=== PATIENT | female | born 1985 | race Caucasian/White ===

== ENCOUNTER 2022-11-11 22:54 | Emergency (ER) | payer MEDICAID ==
[~2022-11-11] VITALS: Ht 152.4 cm; Wt 65.0 kg
[2022-11-11 23:24] VITALS: BP 122/82
[2022-11-11 23:56] LABS: CLARITY,URINE CLOUDY (Clear); COLOR,URINE RED (Yellow); GLUCOSE, URINE 100 mg/dl (Neg); KETONES,URINE TRACE mg/dl (Neg); LEUKOCYTE ESTERASE ,URINE TRACE (Neg); OCCULT BLOOD,URINE LARGE (Neg); PROTEIN,URINE 100 mg/dl (Neg)
[2022-11-11 23:57] LABS: URINE HCG POSITIVE (NEG)
[2022-11-12 00:03] LABS: UA COLLECTION TYPE CLN CATCH MIDSTREAM
[2022-11-12 00:05] LABS: NITRITES, URINE NEGATIVE (Neg); RBC,URINE TNTC /HPF (0-2)
--- NOTE | 2022-11-12 00:06 | NUR ---
I agree with Silver Singh assessment.
[2022-11-12 00:07] LABS: BACTERIA,URINE FEW /HPF (Neg); SQUAMOUS EPITHELIAL CELL,UR FEW /LPF (FEW)
[2022-11-12 00:19] LABS: BASOPHILS % (AUTO) 0.3 % (0-1); EOSINOPHILS % (AUTO) 0.4 % (0-6); HEMATOCRIT 29.3 % (35.0-45.0); LYMPHOCYTES # (AUTO) 2.8 X10'3 (1.1-4.8); LYMPHOCYTES % (AUTO) 23.9 % (21-51); MEAN CORPUSCULAR HEMOGLOBIN 27.1 PG (27.0-31.0); MEAN CORPUSCULAR VOLUME 79.7 FL (78-98); MONOCYTES # (AUTO) 0.6 X10'3 (0-0.9); MONOCYTES % (AUTO) 5.1 % (2-12); NEUTROPHILS # (AUTO) 8.2 X10'3 (1.8-7.7); NEUTROPHILS % (AUTO) 70.3 % (42-75); PLATELET COUNT 243 X10'3 (140-440); RED BLOOD COUNT 3.68 X10'6 (4.20-5.60); RED CELL DISTRIBUTION WIDTH 15.6 % (11.5-14.5); WHITE BLOOD COUNT 11.6 X10'3 (4.5-11.0)
[2022-11-12 00:35] LABS: ALANINE AMINOTRANSFERASE 24 U/L (12-78); ALBUMIN 3.6 G/DL (3.4-5.0); ALBUMIN/GLOBULIN RATIO 1.2 (1.1-1.5); ALKALINE PHOSPHATASE 53 IU/L (46-116); ANION GAP 8 (8-16); ASPARTATE AMINO TRANSFERASE 24 U/L (10-37); BILIRUBIN,TOTAL 0.2 MG/DL (0.1-1.0); BLOOD UREA NITROGEN 10 MG/DL (7-18); BUN/CREATININE RATIO 17.2 (6.6-38.0); CALCIUM 8.8 MG/DL (8.5-10.1); CHLORIDE 103 MMOL/L (99-107); CREATININE 0.58 MG/DL (0.40-0.90); GLUCOSE 96 MG/DL (70-104); POTASSIUM 3.5 MMOL/L (3.5-5.1); SODIUM 136 MMOL/L (135-145); TOTAL CARBON DIOXIDE 25.3 MMOL/L (24-32); TOTAL PROTEIN 6.6 G/DL (6.4-8.2); eGFR > 90 ML/MIN
[2022-11-12 01:02] LABS: BETA HCG,QUANTITATIVE 7047 mIU/ml
== END 2022-11-12 01:24 | disposition left against medical advice (07) ==
LOC: ER 22:56
DX: O20.8 Other hemorrhage in early pregnancy (principal); Z3A.13 13 weeks gestation of pregnancy; Z98.890 Other specified postprocedural states; Z79.899 Other long term (current) drug therapy
CPT/HCPCS: 36415; 76817; 80053; 81001; 81003; 81025; 84702; 85025; 86885; 86900; 86901; 87077; 87088; 87186; 99284

== ENCOUNTER 2024-09-16 13:17 | Emergency (ER) | payer MEDICAID ==
[~2024-09-16] VITALS: Ht 152.4 cm; Wt 64.2 kg
[~2024-09-16 13:17] MED LIST: CLIN-97 PO
[2024-09-16 13:26] VITALS: BP 104/51; PULSE 68; RESP 16; TEMP 98.7; O2SAT 100
[2024-09-16] MEDS: LIDOcaine/epinephrine/tetracaine TOPICAL sol 3 ML syringe TOP ONE (14:56)
[2024-09-16] MEDS: LIDOcaine 1% W/epiNEPHrine 1:100,000 20ml vial SQ ONE (15:30)
[2024-09-16] MEDS ORDERED: SULF1TAB49 PO (15:46)
[2024-09-16] MEDS ORDERED: sulfamethoxazole/trimethoprim DS (800/160mg) tablet PO ONE (15:50)
== END 2024-09-16 16:54 | disposition left against medical advice (07) ==
LOC: ER 13:18
DX: N76.4 Abscess of vulva (principal); Z98.890 Other specified postprocedural states; Z79.899 Other long term (current) drug therapy
CPT/HCPCS: 56405; 99284; J3490; A6258; A6449

== ENCOUNTER 2024-09-20 18:10 | Emergency (ER) | payer MEDICAID ==
[~2024-09-20] VITALS: Ht 152.4 cm; Wt 52.3 kg
[~2024-09-20 18:10] MED LIST changes: +SULF1TAB49 PO
[2024-09-20 18:22] VITALS: BP 125/76; PULSE 100; RESP 18; TEMP 97.7; O2SAT 99
[2024-09-20] MEDS ORDERED: METR-159 PO (20:41)
== END 2024-09-20 20:45 | disposition home or self-care (01) ==
LOC: ER 18:11
DX: N76.4 Abscess of vulva (principal); Z79.2 Long term (current) use of antibiotics; Z98.890 Other specified postprocedural states
CPT/HCPCS: 87070; 87210; 99284

== ENCOUNTER 2025-04-14 07:47 | Emergency (ER) | payer MEDICAID ==
[~2025-04-14] VITALS: Ht 152.4 cm; Wt 54.5 kg
[~2025-04-14 07:47] MED LIST changes: +BUPR1FIL3 SL; +CLON-529 PO; +FLUO20CA39 PO; +LACT-373 PO; +MAGN296S68 PO; +ONDA-245 PO; -SULF1TAB49 PO
[2025-04-14 07:48] VITALS: BP 128/83; PULSE 73; RESP 16; TEMP 98.6; O2SAT 100
[2025-04-14] MEDS ORDERED: IBUP-1985 PO (08:06)
[2025-04-14] MEDS ORDERED: AMOX-101 PO (08:06)
--- NOTE | 2025-04-14 08:07 | Physician Documentation ---
History of Present Illness General Chief Complaint: Tooth Problem Stated Complaint: TOOTH ABCESS Time Seen by MD: 07:58 Primary Medical Doctor: [facility] History of Present Illness Initial Comments The patient is a 39-year-old female who presents with a two day history of dental pain involving the left upper 1st molar. It has been broken for a long time. She reports that it has not caused any trouble until two days ago. She has an appointment with a dentist in approximately two months. Medication Reconciliation Allergies: Coded Allergies: No Known Allergies (Unverified , 04/14/25) Scheduled Clindamycin HCL* (Clindamycin HCL*), 1 CAP PO Q6H Past Medical History Past Medical History: No Pertinent History Past Surgical History: Lives In: Home Review of Systems ROS Constitutional: Denies chills, fatigue, fever, weight gain or weight loss. HEENT: Dental pain, no constitutional symptoms Respiratory: Denies cough, shortness of breath or wheezing. Cardiovascular: Denies chest pain, pain while walking (claudication), edema or palpitations. Gastrointestinal: Denies abdominal pain, blood in stool, constipation, diarrhea, heartburn, loss of appetite, nausea or vomiting. Genitourinary: Denies painful urination (dysuria), excessive amount of urine (polyuria) or urinary frequency. Metabolic/Endocrine: Denies cold intolerance, heat intolerance, excessive thirst (polydipsia) or excessive hunger (polyphagia). Neurological: Denies dizziness, extremity numbness, extremity weakness, headaches, seizures or tremors. Psychiatric: Denies anxiety or depression. Integumentary: Denies breast discharge, breast lump, hives, mole change(s), rash or skin lesion. Musculoskeletal: Denies back pain, joint pain, joint swelling or neck pain. Hematologic: Denies easily bleeding, easily bruises, lymphedema or issues with blood clots. Immunologic: Denies food allergies or seasonal allergies. Physical Exam Physical Exam Vital Signs: Temperature: 98.6, Source: Oral, Heart Rate: 73, Respiratory Rate: 16, BP: 128/83, Pulse Oximetry: 100, Weight: 54.550 Physical Exam Physical Exam Vitals and nursing note reviewed. Constitutional: General: Patient is awake, alert, oriented x 4 in no acute distress and well appearing. Speech is clear and lucid. Appearance: Normal appearance. Patient is not ill-appearing, toxic-appearing or diaphoretic. HENT: Head: Normocephalic and atraumatic. Mouth/Throat: Fractured left upper 1st molar without drainage or local swelling Mouth: Mucous membranes are moist. Pharynx: Oropharynx is clear. Eyes: General: No scleral icterus. Extraocular Movements: Extraocular movements intact. Pupils: Pupils are equal, round, and reactive to light. Cardiovascular: Rate and Rhythm: Normal rate and regular rhythm. Heart sounds: No murmur heard. Pulmonary: Effort: No respiratory distress. Breath sounds: No wheezing, rhonchi or rales. Abdominal: General: There is no distension. Palpations: There is no fluid wave, hepatomegaly or mass. Tenderness: There is no abdominal tenderness. There is no guarding. Musculoskeletal: General: No swelling or deformity. Skin: Coloration: Skin is not jaundiced. Findings: No erythema or rash. Neurological: Mental Status: Patient is alert. Progress Results/Orders Results/Orders Vital Signs 04/14/25 07:48 Temp 98.6 Pulse 73 Resp 16 B/P (MAP) 128/83 Pulse Ox 100 Medical Decision Making Findings Patient has developing dental infection. I am going to start her on amoxicillin and ibuprofen Departure Disposition: HOME / SELF CARE / HOMELESS Impression: Primary Impression: Dental abscess Additional Instructions: Please be sure to follow-up with a dentist, as discussed. In the meantime, take the antibiotic and pain medication. Referrals: NO PRIMARY CARE PROVIDER (PCP) Prescriptions Ibuprofen (Ibuprofen) 600 Mg Tablet 1 TAB PO Q6H PRN for pain, #30 TABLET Prov: JAIR DUNN MD 04/14/25 Amoxicillin Trihydrate (Amoxicillin) 500 Mg Capsule 2 CAP PO BID, #40 CAP Prov: JAIR DUNN MD 04/14/25 Signature Scribe Signature: . Attestation: . JAIR DUNN MD Apr 14, 2025 08:07
[2025-04-14] MEDS ORDERED: FLUC100T PO (08:23)
== END 2025-04-14 08:26 | disposition home or self-care (01) ==
LOC: ER 07:48
DX: K04.7 Periapical abscess without sinus (principal)
CPT/HCPCS: 99283

== ENCOUNTER 2025-08-13 09:37 | Emergency (ER) | payer MEDICAID ==
[~2025-08-13] VITALS: Ht 152.4 cm; Wt 66.5 kg
[~2025-08-13 09:37] MED LIST changes: +CLIN-224 PO; -CLIN-97 PO; -FLUO20CA39 PO; +FLUO20CA41 PO; +IBUP600T52 PO
[2025-08-13 09:41] VITALS: TEMP 98.5
--- NOTE | 2025-08-13 09:59 | ELECTROCARDIOGRAPH REPORT ---
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 Pavel Huston Measurements Intervals [place] Rate: 95 P: 76 ME: 128 QRS: 68 QRSD: 78 T: -11 QT: 374 QTc: 470 Interpretive Statements Sinus rhythm Borderline T abnormalities, diffuse leads Electronically Signed On 08-14-2025 20:42:[address] Pavel Huston Please click the below link to view image of tracing.
--- NOTE | 2025-08-13 10:36 | Physician Documentation ---
History of Present Illness ~ Chief Complaint: Medical Clearance Stated Complaint: DR REFER/EKG Time Seen by MD: 10:31 Primary Medical Doctor: maksim HPI 89-year-old female presents to the ED requesting medical clearance and EKG secondary to taking ongoing methadone.. Denies any cardiac symptoms any chest pain shortness of breath or vomiting Tetanus within 5 years?: Yes Medication Reconciliation Allergies: Coded Allergies: No Known Allergies (Unverified , 08/13/25) Scheduled Buprenorphine Hcl/Naloxone Hcl (Suboxone 8 Mg-2 Mg Sl Film), 1 EACH SL TID, (Reported) Clindamycin HCL* (Clindamycin HCL*), 1 CAP PO Q6H Fluoxetine Hcl* (Prozac*), 20 MG PO DAILY, (Reported) Lactulose (Lactulose), 30 ML PO TID Magnesium Citrate (MAGNESIUM CITRATE oral solution), 296 ML PO HS Scheduled PRN Clonidine Hcl* (Catapres*), 0.1 MG PO TID PRN for alcohol withdrawal Ibuprofen (Ibuprofen), 1 TAB PO Q6H PRN for pain Ondansetron 8mg ODT (Ondansetron Odt), 1 TAB PO TID PRN for nausea/vomiting Past Medical History Past Medical History: No Pertinent History Past Surgical History: Lives In: Home Review of Systems All Other Systems at this time: Reviewed and Negative ROS Scribed for Pawel Correia Histopathologist by Pawel Zaragoza NP . 08/13/25 10:34 Physical Exam Vital Signs: Temperature: 98.5, Source: Temporal, Heart Rate: 100, Respiratory Rate: 18, BP: 149/85, Pulse Oximetry: 99, Weight: 66.500 Oxygen Flow Rate: 0 Physical Exam General: Alert, no apparent distress. HEENT: PERRL, EOMI, no injection, moist mucous membranes. Neck: Full range of motion. Respiratory: Lungs clear, no respiratory distress. Chest: No accessory muscle use. Cardiovascular: Regular rate and rhythm, no murmurs. Gastrointestinal: Soft, nontender, nondistended. Bowels sounds present. Extremities: Normal range of motion, no deformity. Neurologic: Oriented x4. Psychiatric: Normal mood and affect. Skin: Normal color, warm and dry. No edema, no ecchymosis. Progress Results/Orders Results/Orders Vital Signs 08/13/25 08/13/25 09:41 10:44 Temp 98.5 Pulse 100 78 Resp 18 16 B/P (MAP) 149/85 125/91 Pulse Ox 99 98 O2 Flow Rate 0 Medical Decision Making Additional information obtaine: old records Findings No signs of QT elongation patient meets criteria for discharge and further eval in the outpatient setting Per my interpretation no signs of ST over elevation or QT elongation normal sinus rhythm Differential Dx:Considerations: Include: Intoxication-Alcohol, Intoxication- Other drug, Personality disorder, Substance abuse disorder, Acute delirium, Clos ed head injury, Cervical spine injury, Skull fracture, Fracture(s), Abrasion, Contusion, Foreign body, Hematoma, Laceration, Alcohol withdrawl syndrom, Encephalopathy, Hepatitis, Medically stable, Other Departure Disposition: HOME / SELF CARE / HOMELESS Impression: Primary Impression: General medical exam Additional Impression: Methadone dependence Discharge Instructions: Medical Screening Exam Additional Instructions: No evidence of QT elongation patient is medically cleared for outpatient therapy Referrals: NO PRIMARY CARE PROVIDER (PCP) Education Educated: Patient Educated regarding: diagnosis Signature Scribe Signature: h Attestation: Scribed for Pawel Correia Histopathologist by Pawel Zaragoza NP . 08/13/25 18:00 PAWEL CORREIA NP Aug 13, 2025 10:36 JAIR DUNN MD Aug 13, 2025 17:46
[2025-08-13 10:44] VITALS: BP 125/91; PULSE 78; RESP 16; O2SAT 98
== END 2025-08-13 10:49 | disposition home or self-care (01) ==
LOC: ER 09:38
DX: Z00.00 Encounter for general adult medical examination without abnormal findings (principal); F11.20 Opioid dependence, uncomplicated; Z79.899 Other long term (current) drug therapy; Z98.890 Other specified postprocedural states
CPT/HCPCS: 93005; 99283